=== PATIENT | male | born 1950 | race Hispanic/Latino ===

== ENCOUNTER 2023-05-02 08:31 | Outpatient (CLI) | payer BC | END 2023-05-02 08:32 | disposition home or self-care (01) | LOC: ULT 08:31 | PROVIDERS: ATTEND Family Medicine | DX: R10.11 Right upper quadrant pain (principal); K76.0 Fatty (change of) liver, not elsewhere classified; N28.89 Other specified disorders of kidney and ureter | CPT/HCPCS: 76705 ==